=== PATIENT | female | born 1985 | race African-American/Black ===

== ENCOUNTER 2022-01-21 19:23 | Inpatient (IN) | payer MEDICAID ==
[~2022-01-21] VITALS: Ht 165.1 cm; Wt 68.5 kg
[2022-01-21] MEDS ORDERED: SODIUM CHLORIDE 0.9% 1,000 ML IV ONE (22:15)
[2022-01-21] MEDS ORDERED: MORPHINE SULFATE 4 MG/ML CPJ (NOT FOR IM USE) IV STA (22:15)
[2022-01-21] MEDS ORDERED: ONDANSETRON HCL 4MG/2ML INJ IV STA (22:15)
[2022-01-21 23:03] LABS: HEMATOCRIT. 31.5 % (36.0-48.0); HEMOGLOBIN. 9.9 g/dL (12.0-16.0); MEAN CORPUSCULAR HEMOGLOBIN 27.6 pg (28.0-32.0); MEAN CORPUSCULAR VOLUME 87.4 fL (81.0-99.0); MEAN PLATELET VOLUME 8.1 fl (7.4-10.4); PLATELET 384 x1000/uL (130-400); RED BLOOD CELL COUNT 3.61 mill/uL (4.2-5.4); RED CELL DISTRIBUTION WIDTH 19.9 % (11.6-14.6)
[2022-01-21 23:12] LABS: CHLORIDE 96 mEq/L (98-107)
[2022-01-21 23:17] LABS: HCG SCREEN NEGATIVE
[2022-01-21] MEDS ORDERED: MAGNESIUM 2 G PREMIX 50 ML IV ONE (23:45)
[2022-01-21] MEDS ORDERED: POTASSIUM CHLORIDE 20MEQ TABLET SR PO ONE (23:45)
[2022-01-21] MEDS ORDERED: KCL 20MEQ/100ML PREMIX 100 ML IV ONE (23:45)
[2022-01-22] MEDS ORDERED: CEFTRIAXONE 2 G PREMIX 50 ML IV ONE
[2022-01-22] MEDS: METRONIDAZOLE 500 MG PREMIX 100 ML IV SCH ×3 (05:00→19:31)
[2022-01-22] MEDS ORDERED: CLONIDINE 0.1MG TABLET PO PRN (05:45)
[2022-01-22] MEDS ORDERED: MAGNESIUM/ALUMINUM HYDROXIDE/SIMETHICONE 30ML UDC PO PRN (05:45)
[2022-01-22] MEDS ORDERED: DOCUSATE SODIUM 100MG CAPSULE PO PRN (05:45)
[2022-01-22] MEDS ORDERED: GUAIFENESIN 200MG/10ML SUGAR FREE UDC PO PRN (05:45)
[2022-01-22] MEDS ORDERED: IPRATROPIUM/ALBUTEROL 0.5-3(2.5)MG/3ML NEB HHN PRN (05:45)
[2022-01-22] MEDS ORDERED: ACETAMINOPHEN 325MG TABLET PO PRN ×2 (05:45)
[2022-01-22] MEDS ORDERED: KETOROLAC 15MG/ML VIAL IM PRN (06:00)
[2022-01-22] MEDS ORDERED: IOHEXOL-350 100 ML BOTTLE ONE (07:17)
[2022-01-22 08:00] VITALS: BP 116/76
[2022-01-22] MEDS: ENOXAPARIN 40MG/0.4ML SYR SUBCUT SCH ×2 (08:37→09:00)
[2022-01-22] MEDS: ONDANSETRON HCL 4MG/2ML INJ IV PRN ×3 (08:38→22:02)
[2022-01-22 09:00] VITALS: BP 116/76
[2022-01-22] MEDS ORDERED: CALCIUM CARBONATE/VITAMIN D3 500MG TABLET PO SCH (09:00)
[2022-01-22] MEDS: DIPHENHYDRAMINE 50MG/ML VIAL IV PRN ×2 (10:59→15:31)
[2022-01-22 11:06] LABS: EOSINOPHILS % 1.2 % (0.0-5.0); HEMATOCRIT. 26.6 % (36.0-48.0); HEMOGLOBIN. 8.6 g/dL (12.0-16.0); LYMPHOCYTES % 26.1 % (20.0-50.0); MEAN CORPUSCULAR HEMOGLOBIN 27.5 pg (28.0-32.0); MEAN CORPUSCULAR VOLUME 85.5 fL (81.0-99.0); MEAN PLATELET VOLUME 7.6 fl (7.4-10.4); MONOCYTES % 10.4 % (2.0-8.0); NEUTROPHILS % 61.3 % (40.0-76.0); PLATELET 314 x1000/uL (130-400); RED BLOOD CELL COUNT 3.11 mill/uL (4.2-5.4); RED CELL DISTRIBUTION WIDTH 20.3 % (11.6-14.6)
[2022-01-22] MEDS ORDERED: MORPHINE SULFATE 2 MG/ML CPJ (NOT FOR IM USE) IV PRN (11:15)
[2022-01-22 11:53] VITALS: BP 135/87
[2022-01-22] MEDS ORDERED: DEXT 5%/0.45% NACL 500ML 500 ML IV ONE (14:00)
[2022-01-22] MEDS ORDERED: NALOXONE HCL 0.4MG/ML VIAL IV PRN (14:00)
[2022-01-22 14:35] LABS: CHLORIDE 105 mEq/L (98-107)
[2022-01-22 15:17] LABS: T4 FREE 0.81 ng/dL (0.76-1.46)
[2022-01-22] MEDS: PANTOPRAZOLE SODIUM 40 MG/VIAL IV SCH (15:31)
[2022-01-22 15:34] LABS: VITAMIN B12 SERUM 385 pg/mL (211-911)
[2022-01-22 15:36] LABS: HDL CHOLESTEROL 119 mg/dL (40-59); LDL CHOLESTEROL 50 mg/dL (5-100); TOTAL IRON BINDING CAPACITY 345 ug/dL (250-450)
[2022-01-22] MEDS: TRAMADOL 50MG TABLET PO PRN ×2 (15:37→22:01)
[2022-01-22 16:00] VITALS: BP 112/79
[2022-01-22] MEDS ORDERED: CARV6.2548 MT (17:17)
[2022-01-22] MEDS ORDERED: HYDROCORTISONE 1% RECTAL CREAM 30GM PR PRN (19:45)
[2022-01-22] MEDS ORDERED: METHOCARBAMOL 500MG TABLET PO ONE (19:45)
[2022-01-22 20:00] VITALS: BP 110/70
[2022-01-22 20:00] LABS: CLARITY URINE CLEAR (CLEAR); COLOR URINE YELLOW (YELLOW); KETONES URINE 1+ (NEGATIVE); LEUKOCYTE ESTERASE URINE NEGATIVE (NEGATIVE); NITRITE URINE NEGATIVE (NEGATIVE); OCCULT BLOOD URINE NEGATIVE (NEGATIVE); PH URINE 7.5 (4.5-8.0); PROTEIN URINE NEGATIVE (NEGATIVE); SPECIFIC GRAVITY URINE 1.075 (1.005-1.030)
[2022-01-22 20:27] LABS: *AMPHETAMINES SCREEN URINE NEGATIVE (NEGATIVE); *BARBITURATES SCREEN URINE NEGATIVE (NEGATIVE); *BENZODIAZEPINES SCREEN URINE NEGATIVE (NEGATIVE); *COCAINE SCREEN URINE NEGATIVE (NEGATIVE); METHADONE URINE SCREEN NEGATIVE (NEGATIVE); PHENCYCLIDINE URINE SCREEN NEGATIVE (NEGATIVE)
[2022-01-22 21:05] LABS: CANNABINOID URINE SCREEN PRESUMTIVE POSITIVE (NEGATIVE); OPIATES URINE SCREEN PRESUMTIVE POSITIVE (NEGATIVE)
[2022-01-22] MEDS ORDERED: KCL 20MEQ/100ML PREMIX 100 ML IV NR (22:30)
[2022-01-23] VITALS: BP 114/73
[2022-01-23 04:00] VITALS: BP 118/82
[2022-01-23] MEDS: TRAMADOL 50MG TABLET PO PRN ×3 (04:43→18:40)
[2022-01-23 06:28] LABS: PLATELET ESTIMATE NORMAL
[2022-01-23 06:54] LABS: HEMATOCRIT 28.6 % (36.0-48.0); HEMOGLOBIN 8.9 g/dL (12.0-16.0); MEAN CORPUSCULAR HEMOGLOBIN 27.1 pg (28.0-32.0); MEAN CORPUSCULAR VOLUME 87.3 fL (81.0-99.0); PLATELET 286 x1000/uL (130-400); RED BLOOD CELL COUNT 3.28 mill/uL (4.2-5.4); RED CELL DISTRIBUTION WIDTH 19.9 % (11.6-14.6)
[2022-01-23 07:10] LABS: CHLORIDE 104 mEq/L (98-107)
[2022-01-23 07:19] LABS: PHOSPHORUS 1.9 mg/dL (2.5-4.9)
[2022-01-23 08:00] VITALS: BP 115/63
[2022-01-23] MEDS: PANTOPRAZOLE SODIUM 40 MG/VIAL IV SCH (08:20)
[2022-01-23] MEDS: ONDANSETRON HCL 4MG/2ML INJ IV PRN ×2 (08:20→14:25)
[2022-01-23] MEDS: ENOXAPARIN 40MG/0.4ML SYR SUBCUT SCH (08:20)
[2022-01-23] MEDS ORDERED: POTASSIUM PHOS,M-BASIC-D-BASIC 30 MMOL in DEXT 5% WATER 500 ML IV NR (11:30)
[2022-01-23] MEDS ORDERED: MAGNESIUM 2 G PREMIX 50 ML IV NR (11:30)
[2022-01-23 12:00] VITALS: BP 121/66
[2022-01-23] MEDS ORDERED: ONDA4TAB50 PO (14:03)
[2022-01-23] MEDS ORDERED: OMEP40CA20 PO (14:03)
[2022-01-23] MEDS ORDERED: [UNRECOGNIZED DRUG - CODE] MT (14:03)
[2022-01-23] MEDS ORDERED: TRAM50TA3 PO (14:03)
[2022-01-23 18:14] VITALS: BP 151/91
[2022-01-23 20:00] VITALS: BP 120/60
== END 2022-01-23 20:58 | disposition home or self-care (01) | DRG 198 ==
LOC: ER 19:23 → MICUSO 01-22 00:49 → EDBEDREQ 01-22 00:52 → 7WST 01-22 07:52
PROVIDERS: ADMIT Internal Medicine; ATTEND Internal Medicine
DX: I24.9 Acute ischemic heart disease, unspecified (principal); E87.20 Acidosis, unspecified; E87.8 Other disorders of electrolyte and fluid balance, not elsewhere classified; E87.6 Hypokalemia; I50.42 Chronic combined systolic (congestive) and diastolic (congestive) heart failure; I11.0 Hypertensive heart disease with heart failure; D64.9 Anemia, unspecified; F41.9 Anxiety disorder, unspecified; F32.A Depression, unspecified; K58.9 Irritable bowel syndrome, unspecified; R74.01 Elevation of levels of liver transaminase levels; E83.42 Hypomagnesemia; Z82.49 Family history of ischemic heart disease and other diseases of the circulatory system
CPT/HCPCS: 36415; 71045; 74174; 80053; 80061; 80305; 81003; 82607; 82746; 83540; 83550; 83605; 83735; 83880; 84100; 84439; 84443; 84484; 84703; 85025; 85027; 93005; 99285; C9113; J0696; J1200; J1650; J1885; J2270; J2405; J3475; J3480; J3490; J7030; J7060; Q9967